=== PATIENT | female | born 1970 | race Caucasian/White ===

== ENCOUNTER 2019-02-27 07:45 | Emergency (ER) | payer OTHER ==
[2019-02-27 07:57] VITALS: BP 160/109
--- NOTE | 2019-02-27 09:33 | UC ---
Skin Complaint HPI - HPI Summary HPI Summary: 48 -year-old female who thinks that she has a tick embedded in her mid upper back. She also removed to other ticks one that was not embedded and 1 that was just starting to become embedded. - History of Current Complaint Chief Complaint: UCSkin Time Seen by Provider: 02/27/19 08:02 Stated Complaint: TICK BITE Hx Obtained From: Patient Hx Last Menstrual Period: 02/27/19 ?: No Onset/Duration: Sudden Onset Skin Exposure Onset/Duration: Days Ago - Patient states the area has been there for approximately 2 days. Timing: Constant Onset Severity: Mild Current Severity: None Pain Intensity: 3 Pain Scale Used: 0-10 Numeric Location: Discrete, Other - Upper mid back. Patient states she has been scratching at the area. Aggravating Factor(s): Nothing Alleviating Factor(s): Nothing Associated Signs & Symptoms: Positive: Negative Related History: Insect Bite/Sting - Patient thinks she has a tick bite present. She saw a black dot in her mid upper back. - Allergy/Home Medications Allergies/Adverse Reactions: Allergies Allergy/AdvReac Type Severity Reaction Status Date / Time Penicillins Allergy Unknown Verified 02/27/19 07:57 Reaction Details environmental Allergy Congestion Uncoded 02/27/19 07:57 Home Medications: Home Medications Ibuprofen 400 mg PO ONCE PRN 02/27/19 [History Confirmed 02/27/19] Loratadine 10 mg PO DAILY 02/27/19 [History Confirmed 02/27/19] PMH/Surg Hx/FS Hx/Imm Hx Previously Healthy: Yes - Surgical History Surgical History: Yes Surgery Procedure, Year, and Place: T&A - Family History Known Family History: Positive: Non-Contributory - Social History Alcohol Use: None Substance Use Type: None Smoking Status (MU): Never Smoked Tobacco Review of Systems All Other Systems Reviewed And Are Negative: Yes Skin: Positive: Other - Patient states the black dot in her mid upper back is a tick. Is Patient Immunocompromised?: No Physical Exam Triage Information Reviewed: Yes Appearance: Well-Appearing, No Pain Distress, Well-Nourished Vital Signs: Initial Vital Signs Temp 97.6 F 02/27/19 07:51 Pulse 89 02/27/19 07:51 Resp 18 02/27/19 07:51 BP 160/109 02/27/19 07:51 Pulse Ox 100 02/27/19 07:51 Vital Signs Reviewed: Yes Skin: Positive: Other - The area of concern appears to be more of a mole that is flat against the skin and not a tick. This was rechecked by Dr. Cate Sorenson with magnifying lenses. She was given reassurance that this was not a tick. Course/Dx - Course Course Of Treatment: She has been comfortable here. She opted not to have the prophylaxis against the other 2 ticks because they had not embedded themselves. I did advise her to see a entry level financial analyst if this was a new mole for her. - Diagnoses Provider Diagnosis: Benign mole Discharge - Sign-Out/Discharge Documenting (check all that apply): Patient Departure All imaging exams completed and their final reports reviewed: No Studies - I advised the patient this was more than likely a benign mole however if she felt that it's a new mole she should follow-up with a entry level financial analyst. She is agreeable to this plan of action. - Discharge Plan Condition: Good Disposition: HOME Patient Education Materials: Tick Bite (ED) Referrals: Care [facility] [Outside] No Primary Care Phys,[facility]OPCP [Primary Care Provider] - Additional Instructions: Watch for signs of Lyme disease and follow up with your primary doctor as needed. - Billing Disposition and Condition Condition: GOOD Disposition: Home - Attestation Statements Provider Attestation: I was available for consult. This patient was seen by the JO. The patient was not presented to, seen by, or examined by me. -Marco
== END 2019-02-27 08:26 | disposition home or self-care (01) ==
LOC: UCEAST 07:45
DX: D23.5 Other benign neoplasm of skin of trunk (principal); J30.2 Other seasonal allergic rhinitis
CPT/HCPCS: 99201; G0463